=== PATIENT | male | born 1965 | race Caucasian/White ===

== ENCOUNTER 2023-09-22 04:49 | Emergency (ER) | payer SELFPAY ==
[~2023-09-22] VITALS: Ht 177.8 cm; Wt 70.0 kg
[2023-09-22 05:08] VITALS: BP 140/63; PULSE 80; RESP 16; TEMP 98.5; O2SAT 98
[2023-09-22] MEDS ORDERED: AMOX1TAB16 MT (07:53)
[2023-09-22] MEDS ORDERED: OXYM30SP26 BOTHNSTRLS (07:53)
== END 2023-09-22 08:45 | disposition left against medical advice (07) ==
LOC: ER 05:05
DX: S02.85XA Fracture of orbit, unspecified, initial encounter for closed fracture (principal); F10.129 Alcohol abuse with intoxication, unspecified; R51.9 Headache, unspecified; I10 Essential (primary) hypertension; Y08.89XA Assault by other specified means, initial encounter; Y93.89 Activity, other specified; Y92.89 Other specified places as the place of occurrence of the external cause; Y99.8 Other external cause status; Y90.9 Presence of alcohol in blood, level not specified
CPT/HCPCS: 70486; 99284